=== PATIENT | male | born 1990 | race Caucasian/White ===

== ENCOUNTER 2016-09-24 08:40 | Emergency (ER) | payer OTHER ==
[~2016-09-24] VITALS: Ht 190.5 cm; Wt 95.2 kg
[~2016-09-24 08:40] MED LIST: NOHOMEMEDS
[2016-09-24] MEDS ORDERED: ZOFRAN ODT4 MG PO (12:19)
[2016-09-24] MEDS ORDERED: BENTYL20 MG PO (12:19)
[2016-09-24 12:49] VITALS: BP 122/66
== END 2016-09-24 12:50 | disposition home or self-care (01) ==
LOC: EME 08:40
DX: K52.9 Noninfective gastroenteritis and colitis, unspecified (principal); F17.200 Nicotine dependence, unspecified, uncomplicated
CPT/HCPCS: 99281; 99284; J1885; J2405; J7030